=== PATIENT | female | born 1970 | race Caucasian/White ===

== ENCOUNTER → 2017-10-18 | Outpatient (CLI) | payer OTHER | LOC: COL.PUL 10:19 | DX: R06.02 Shortness of breath (principal) ==

== ENCOUNTER → 2017-12-10 | Outpatient (CLI) | payer OTHER | LOC: COL.PUL 12:32 | DX: Z01.89 Encounter for other specified special examinations (principal) ==

== ENCOUNTER → 2018-01-19 | Outpatient (CLI) | payer OTHER | LOC: COL.PUL 12-21 13:00 | DX: R06.02 Shortness of breath (principal) | CPT/HCPCS: J7674 ==

== ENCOUNTER 2018-12-06 13:30 | Outpatient (RCR) | payer OTHER | END 2018-12-12 | disposition home or self-care (01) | LOC: WSPT | DX: M79.7 Fibromyalgia (principal) ==

== ENCOUNTER 2018-12-15 14:39 | Outpatient (RCR) | payer OTHER | END 2019-01-02 09:44 | disposition home or self-care (01) | LOC: WSPT 14:39 | DX: M79.7 Fibromyalgia (principal) ==

== ENCOUNTER 2019-02-01 09:27 | Day surgery (SDC) | payer OTHER ==
[~2019-02-01] VITALS: Ht 162.6 cm; Wt 126.0 kg
[2019-02-01] VITALS (9 sets, daily range): BP systolic 109–157; BP diastolic 80–117; PULSE 65–93; TEMP 97.7
[2019-02-01 10:12] LABS: HEMOGLOBIN 13.9 g/dl (12.5-16.0); MEAN CELL VOLUME 87 fl (80.0-100.0); MEAN CORPUSCULAR HEMOGLOBIN 29 pg (27.0-31.0); MEAN CORPUSCULAR HGB CONC 33 g/dl (33.0-37.0); MEAN PLATELET VOLUME 8.9 fl (7.4-10.4); PLATELET COUNT 310 K/mm3 (130-400); RED BLOOD COUNT 4.82 M/mm3 (4.10-5.30); REDCELL DISTRIBUTION WIDTH-CV 12.8 % (11.5-14.5)
[2019-02-01 10:18] LABS: INR 0.9 (0.8-3.0); PROTHROMBIN TIME 10.7 SECONDS (9.7-12.8)
[2019-02-01 10:25] LABS: CREATININE, serum 0.65 mg/dL (0.52-1.25)
[2019-02-01] MEDS ORDERED: CYMBALTA 60MG60 MG PO (10:52)
[2019-02-01] MEDS ORDERED: LEXAPRO20 MG PO (10:52)
[2019-02-01] MEDS ORDERED: CRESTOR40 MG PO (10:53)
[2019-02-01] MEDS ORDERED: NASONEX SPRAY17 GM NS (10:54)
[2019-02-01] MEDS ORDERED: TYLENOL 325MG325 MG PO (10:55)
[2019-02-01] MEDS ORDERED: ULTRAM 50MG TAB50 MG PO (10:55)
[2019-02-01] MEDS ORDERED: KEPPRA 500MG500 MG PO (10:56)
[2019-02-01] MEDS ORDERED: REQUIP 1MG T1 MG/TAB PO (10:57)
[2019-02-01] MEDS ORDERED: NEXIUM 40MG40 MG PO (10:58)
[2019-02-01] MEDS ORDERED: REFRESH OPTIVE10 M2 OP (10:59)
[2019-02-01] MEDS ORDERED: PRENATAL-U1 CAP PO (11:00)
[2019-02-01] MEDS ORDERED: MASON NATURAL2000 IU PO (11:00)
[2019-02-01] MEDS ORDERED: OMEGA-3 1000 MG1 CAP PO (11:02)
[2019-02-01] MEDS ORDERED: GARLIC100 MG PO (11:03)
[2019-02-01] MEDS ORDERED: B COMPLEX #11 TAB PO (11:04)
[2019-02-01] MEDS ORDERED: VITAMIN C500 MG PO (11:04)
[2019-02-01] MEDS ORDERED: BIOFREEZE 0.2%-1 GE1 TOP (11:05)
[2019-02-01] MEDS ORDERED: LAXATIVE FOR WOM5 MG PO (11:05)
--- NOTE | 2019-02-01 13:53 | NUR ---
ALL MEDICATIONS GIVEN WITH VERBAL ORDER AND READBACK WITH MD. SEE MERGE FOR ALL MEDICATION ADMIN TIMES. ANESTHESIA DOING SEDATION. WILL CONTINUE TO MONITOR PATIENT AND WILL TAKE OVER AFTER ANESTHESIA HANDOFF. POSITIVE BARBEAU'S TEST IN THE RIGHT WRIST.
--- NOTE | 2019-02-01 14:35 | NUR ---
Back from [employer]. Alert and oriented. 2 TR bands noted to right wrist/forearm with 15 cc air and 10 cc air. Good pulses and Cap refill <3 secs noted. VSS
--- NOTE | 2019-02-01 16:25 | NUR ---
10 ml air taken from TR band and band removed. 3 ml air from 2nd TR band with no bleeding noted
--- NOTE | 2019-02-01 17:09 | NUR ---
2nd cuff completely deflated with 15 total mls air out. Pressure dressing applied. INT discontinued intact.
--- NOTE | 2019-02-01 17:20 | NUR ---
Discharge instructions given. Transferred to private car by dahlia
== END 2019-02-01 17:20 | disposition home or self-care (01) ==
LOC: COL.CAR 09:27
PROVIDERS: Internal Medicine Cardiovascular Disease
DX: R07.89 Other chest pain (principal); R94.39 Abnormal result of other cardiovascular function study; R60.0 Localized edema; F32.9 Major depressive disorder, single episode, unspecified; Z91.09 Other allergy status, other than to drugs and biological substances; Z88.5 Allergy status to narcotic agent; Z88.8 Allergy status to other drugs, medicaments and biological substances; Z88.2 Allergy status to sulfonamides; G47.33 Obstructive sleep apnea (adult) (pediatric); E78.5 Hyperlipidemia, unspecified; Z82.49 Family history of ischemic heart disease and other diseases of the circulatory system; Z88.3 Allergy status to other anti-infective agents; Z88.1 Allergy status to other antibiotic agents; Z91.018 Allergy to other foods; Z88.6 Allergy status to analgesic agent; G89.29 Other chronic pain
CPT/HCPCS: J1200; J1644; J2250; J2704; J3010; Q9967

== ENCOUNTER 2020-05-10 10:58 | Day surgery (SDC) | payer OTHER ==
[~2020-05-10] VITALS: Ht 162.6 cm; Wt 132.6 kg
[2020-05-10] VITALS (8 sets, daily range): BP systolic 111–183; BP diastolic 68–109; PULSE 88–98; TEMP 98.8
[~2020-05-10 10:58] MED LIST: B COMPLEX #11 TAB PO; BIOFREEZE 0.2%-1 GE1 TOP; CRESTOR40 MG PO; CYMBALTA 60MG60 MG PO; GARLIC100 MG PO; KEPPRA 500MG500 MG PO; LAXATIVE FOR WOM5 MG PO; LEXAPRO20 MG PO; MASON NATURAL2000 IU PO; NASONEX SPRAY17 GM NS; NEXIUM 40MG40 MG PO; OMEGA-3 1000 MG1 CAP PO; PRENATAL-U1 CAP PO; REFRESH OPTIVE10 M2 OP; REQUIP 1MG T1 MG/TAB PO; TYLENOL 325MG325 MG PO; ULTRAM 50MG TAB50 MG PO; VITAMIN C500 MG PO
[2020-05-10] MEDS ORDERED: SEROQUEL50 MG PO (11:48)
[2020-05-10] MEDS ORDERED: REMERON 15M15 MG/TA1 PO (11:49)
[2020-05-10] MEDS ORDERED: PRINIVIL2.5 MG PO (11:50)
[2020-05-10] MEDS ORDERED: ASPIRIN E.C. 8181 MG PO (11:51)
[2020-05-10] MEDS ORDERED: PEPCID 20MG TAB20 MG PO (11:52)
[2020-05-10 12:15] LABS: HEMATOCRIT 42.9 % (37.0-47.0); HEMOGLOBIN 14.1 g/dl (12.5-16.0); MEAN CELL VOLUME 88 fl (80.0-100.0); MEAN CORPUSCULAR HEMOGLOBIN 29 pg (27.0-31.0); MEAN CORPUSCULAR HGB CONC 33 g/dl (33.0-37.0); MEAN PLATELET VOLUME 9.2 fl (7.4-10.4); PLATELET COUNT 350 K/mm3 (130-400); REDCELL DISTRIBUTION WIDTH-CV 13.2 % (11.5-14.5)
[2020-05-10 12:26] LABS: PROTHROMBIN TIME 11.4 SECONDS (9.7-12.8)
[2020-05-10 12:28] LABS: PARTIAL THROMBOPLASTIN TIME 35.1 SECONDS (26.0-37.0)
[2020-05-10 13:03] LABS: CALCIUM 9.3 mg/dL (8.4-10.2); CREATININE, serum 0.68 (0.52-1.25); POTASSIUM 4.3 mmol/L (3.4-5.0)
--- NOTE | 2020-05-10 13:20 | NUR ---
SEE MERGE FOR MEDICATION ADMINISTRATION TIMES AND INTRA AND POST SEDATION ASSESSMENTS.
--- NOTE | 2020-05-10 16:38 | NUR ---
i reviewed dc instructions with patient, she verbalized understanding. iv dc'd with cath intact, dressing was applied. pt was ambulatory to with steady gait, no problems at discharge. i escorted her to exit via wheelchair
== END 2020-05-10 16:38 | disposition home or self-care (01) ==
LOC: COL.CAR 10:58
PROVIDERS: Internal Medicine Interventional Cardiology
DX: R06.02 Shortness of breath (principal); R60.0 Localized edema; I10 Essential (primary) hypertension; E78.5 Hyperlipidemia, unspecified; Z88.8 Allergy status to other drugs, medicaments and biological substances; Z88.1 Allergy status to other antibiotic agents; Z91.040 Latex allergy status
CPT/HCPCS: J1644; J2250; J3010

== ENCOUNTER 2021-06-06 06:30 | Day surgery (SDC) | payer OTHER ==
[~2021-06-06] VITALS: Ht 162.6 cm; Wt 134.5 kg
[~2021-06-06 06:30] MED LIST changes: +ASPIRIN E.C. 8181 MG PO; +PEPCID 20MG TAB20 MG PO; +PRINIVIL2.5 MG PO; +REMERON 15M15 MG/TA1 PO; +SEROQUEL50 MG PO
[2021-06-06 07:46] VITALS: BP 113/76; PULSE 78; TEMP 97.1
[2021-06-06 08:45] VITALS: BP 126/64; PULSE 84; TEMP 97.8
--- NOTE | 2021-06-06 08:45 | NUR ---
Pt to GI bay 2 via cart from ENDO. Pt awake and alert. Pt ambulates to recliner with stand by assistance. in room. Pt denies pain or nausea. VSS. Muffin and juice given per pt request. Will continue to monitor. Call light within reach.
[2021-06-06 09:00] VITALS: BP 138/86; PULSE 87
--- NOTE | 2021-06-06 09:00 | NUR ---
Pt continues to rest. Tolerating food and fluids without nausea. Denies needs. Call light within reach.
[2021-06-06 09:15] VITALS: BP 132/73; PULSE 84
--- NOTE | 2021-06-06 09:15 | NUR ---
Discharge instructions reviewed. Pt voices understanding. IV site discontinued with all parts intact. Pt up to dress. Call light within reach.
--- NOTE | 2021-06-06 09:34 | NUR ---
Pt escorted to private car via wheel chair. Pt accompanied home by her .
== END 2021-06-06 09:35 | disposition home or self-care (01) ==
LOC: SDCO 06:30
DX: K21.00 Gastro-esophageal reflux disease with esophagitis, without bleeding (principal); K31.89 Other diseases of stomach and duodenum; K29.70 Gastritis, unspecified, without bleeding; E78.2 Mixed hyperlipidemia; E66.9 Obesity, unspecified; Z20.822 Contact with and (suspected) exposure to COVID-19; R56.9 Unspecified convulsions; G47.33 Obstructive sleep apnea (adult) (pediatric); F32.9 Major depressive disorder, single episode, unspecified; M79.7 Fibromyalgia; F41.9 Anxiety disorder, unspecified; Z68.42 Body mass index [BMI] 45.0-49.9, adult; Z79.82 Long term (current) use of aspirin
CPT/HCPCS: J7030